=== PATIENT | male | born 1985 | race Caucasian/White ===

== ENCOUNTER 2022-05-07 08:48 | Emergency (ER) | payer BC, SELFPAY ==
[2022-05-07 09:02] VITALS: BP 156/95; PULSE 66; RESP 20; TEMP 36.4; O2SAT 99
--- NOTE | 2022-05-07 10:22 | ED.DENTAL ---
HPI - Dental/Oral General Chief complaint: Dental/Oral Stated complaint: infected tooth Time Seen by Provider: 05/07/22 10:23 Source: patient, RN notes reviewed and old records reviewed Mode of arrival: ambulatory Limitations: no limitations History of Present Illness HPI Narrative: 36-year-old male accompanied by significant other with 2 day history of dental pain with some left jaw swelling.Patient denies any difficulty with breathing or swallowing no Francisco angina noted no trismus. Patient reports that he has bad teeth and he needs to get into dentist for some extractions states he just got dental insurance. Patient has been taking Ibuprofen for his discomfort. MD Complaint: tooth pain Location: Tooth # (#19) Onset (ago): day(s) (2) Severity scale (1-10): 4 Treatment prior to arrival: oral analgesic Related Data Allergies Allergy/AdvReac Type Severity Reaction Status Date / Time amoxicillin Allergy Unknown Unknown Verified 05/07/22 09:34 Penicillins Allergy Unknown Unknown Verified 05/07/22 09:34 Review of Systems Review of Systems: CONSTITUTIONAL: Denies fever, chills, or sweats. ENT: Denies rhinorrhea, congestion, sore throat, or otalgia. Reports dental pain CARDIOVASCULAR: Denies chest pain, palpitations, or edema. RESPIRATORY: Denies cough or dyspnea. SKIN: Denies rash or itching. MUSCULOSKELETAL: Denies myalgia. NEUROLOGIC: Denies headache All systems reviewed & are unremarkable except as noted in HPI and below PMFSH Past Medical History Medical History (Updated 05/10/22 @ 16:35 by Maryjane South NP) History of dental problems Left wrist fracture Surgical History Surgical History (Updated 05/10/22 @ 16:32 by Maryjane South NP) History of placement of ear tubes Social History Social History (Updated 05/10/22 @ 16:33 by Maryjane South NP) Smoking packs per day: 1 Smoking cigarettes per day: 20.0 Years smoked: 20 Smoking pack-years: 20.00 Smoking status: Current every day smoker Alcohol intake: current Alcohol use details: social Substance use type: does not use Living arrangements: with family Gender identity (if verbalized by the patient): Male Comments At time of signature, agree with nursing past medical, surgical, social and family history. There is no relevant family history pertinent to the presenting complaint Exam Narrative: GENERAL: Well-appearing, well-nourished, and in no acute distress. HEAD: Normocephalic, atraumatic. EYES: PERRLA and EOMI. ENT: Nares clear, no rhinorrhea or epistaxis. Mucous membranes moist. Missing teeth, broken teeth, caries swelling gum and broken molar #19, no Francisco angina or trismus noted left jaw swelling noted NECK: Supple.no lymphadenopathy CHEST: Clear to auscultation. No respiratory distress.SAO2 99% HEART: Regular rate and rhythm. No murmur heard. Normal peripheral pulses. SKIN: Warm, dry, no rash. NEURO: No focal deficits. Alert and oriented x3. Course Course Emergency Course: Patient is aware of diagnosis, understands and agrees to treatment plan. Anticipatory guidance given. Patient agrees to follow-up as directed and is aware of reasons to seek care at the emergency department. Portions of this record may have been created with voice recognition software Level of Care: Express Care Visit Vital Signs Vital signs: Vital Signs Temperature 36.4 C L 05/07/22 09:02 Pulse Rate 66 05/07/22 09:02 Respiratory Rate 20 05/07/22 09:02 Blood Pressure 156/95 H 05/07/22 09:02 Pulse Oximetry 99 05/07/22 09:02 Oxygen Delivery Room Air 05/07/22 09:02 Temperature 36.4 C L 05/07/22 09:02 Pulse Rate 66 05/07/22 09:02 Respiratory Rate 20 05/07/22 09:02 Blood Pressure 156/95 H 05/07/22 09:02 Pulse Oximetry 99 05/07/22 09:02 Oxygen Delivery Room Air 05/07/22 09:02 Reviewed MDM - Dental/Oral MDM Narrative Medical decision making narrative: Patients pain and complaint coupled with physic
== END 2022-05-07 10:40 | disposition home or self-care (01) ==
PROVIDERS: Emergency Provider Registered Nurse
DX: K04.7 Periapical abscess without sinus (principal); K02.9 Dental caries, unspecified
CPT/HCPCS: 99213; G0463

== ENCOUNTER 2022-10-24 08:37 | Emergency (ER) | payer BC, SELFPAY ==
--- NOTE | 2022-10-24 08:41 | ED.SKABFB ---
HPI - Skin/Abscess/Foreign Bdy General Chief complaint: Skin/Abscess/Foreign Body Stated complaint: rash on let arm Source: patient and RN notes reviewed History of Present Illness HPI narrative: 37-year-old male presents to urgent care with complaints of an itchy rash to his left forearm. Patient states [place] this 1st started. Patient states he has been applying calamine lotion with no relief. Patient states the rash aggarwal. Denies any fevers, chills, chest pain or shortness of breath. Some parts of this dictation were generated by voice recognition software and may contain typographical and/or grammatical inaccuracies. Related Data Allergies Allergy/AdvReac Type Severity Reaction Status Date / Time amoxicillin Allergy Unknown Unknown Verified 10/24/22 09:19 Penicillins Allergy Unknown Unknown Verified 10/24/22 09:19 Review of Systems Review of Systems: Pertinent positives and pertinent negatives per HPI. [facility] Past Medical History Medical History (Updated 10/24/22 @ 09:34 by Jia Brush APRN) History of dental problems Left wrist fracture Surgical History Surgical History (Updated 05/10/22 @ 16:32 by Maryjane South NP) History of placement of ear tubes Social History Social History (Updated 05/10/22 @ 16:33 by Maryjane South NP) Smoking packs per day: 1 Smoking cigarettes per day: 20.0 Years smoked: 20 Smoking pack-years: 20.00 Smoking status: Current every day smoker Alcohol intake: current Alcohol use details: social Substance use type: does not use Living arrangements: with family Gender identity (if verbalized by the patient): Male Comments At the time of my signature, I reviewed and agree with the nursing past medical, surgical, social, and family history. There is no relevant family history pertinent to the patient complaint. Exam Narrative: GENERAL: This is a well-nourished, well-developed patient, in no apparent distress. HEAD: normocephalic, atraumatic. EYES: Sclera clear/white. Vision is grossly intact. EARS: External ears normal, auditory canals clear and without drainage. Hearing grossly intact. NOSE: External nose normal with no obvious nasal discharge, nares without redness, no rhinorrhea. THROAT: Mucous membranes moist, posterior pharynx clear. NECK: Neck supple, non-tender without lymphadenopathy, masses or thyromegaly. CARDIOVASCULAR: Regular rate RESPIRATORY: No respiratory distress SKIN: erythremic rash to left FA with linear, dry, patches with various papules noted. Couple to left FA. NEURO: awake, alert, and oriented to person, place and time. There were no obvious focal neurologic abnormalities. EXTREMITIES: No clubbing, cyanosis, or edema. No joint tenderness, effusion, or edema noted. Course Course Level of Care: Express Care Visit Vital Signs Vital signs: Vital Signs Temperature 98.8 F 10/24/22 08:48 Pulse Rate 73 10/24/22 08:48 Respiratory Rate 20 10/24/22 08:48 Blood Pressure 144/98 H 10/24/22 08:48 Pulse Oximetry 97 10/24/22 08:48 Oxygen Delivery Room Air 10/24/22 08:48 Temperature 98.8 F 10/24/22 08:48 Pulse Rate 73 10/24/22 08:48 Respiratory Rate 20 10/24/22 08:48 Blood Pressure 144/98 H 10/24/22 08:48 Pulse Oximetry 97 10/24/22 08:48 Oxygen Delivery Room Air 10/24/22 08:48 Reviewed MDM - Skin/Abscess/Foreign Bdy MDM Narrative Medical decision making narrative: Prevention is always better than treatment. Learn to identify poison joanne, oak, and sumac and avoid it. Wear long sleeves, long pants, shoes, and socks. If you touched the plant, try to keep your hands away from your eyes, mouth, and face. Wash the skin thoroughly with soap and cool water as soon as possible. Scrub under the fingernails with a brush to prevent spreading of the resin to other parts of the body by touching or scratching. Remember to wash any clothing with so
[2022-10-24 08:48] VITALS: BP 144/98; PULSE 73; RESP 20; TEMP 37.1; O2SAT 97
== END 2022-10-24 09:46 | disposition home or self-care (01) ==
PROVIDERS: Emergency Provider Nurse Practitioner Family
DX: L25.9 Unspecified contact dermatitis, unspecified cause (principal); F17.210 Nicotine dependence, cigarettes, uncomplicated
CPT/HCPCS: 99213; G0463

== ENCOUNTER 2024-05-28 09:03 | Emergency (ER) | payer BC, SELFPAY ==
[2024-05-28 09:05] VITALS: BP 145/97; PULSE 65; RESP 17; TEMP 36.9; O2SAT 97
--- NOTE | 2024-05-28 09:37 | ED_ITS ---
HPI - Dental/Oral General Chief complaint: Dental/Oral Stated complaint: Toothache Source: patient Mode of arrival: ambulatory History of Present Illness HPI Narrative: Patient presents for evaluation of a dental issue. He indicates he noticed swelling in the gumline yesterday and woke from sleep this morning with some right sided facial swelling. No fever, chills, nausea, vomiting. He is not diabetic. He had some drainage from the gumline he yesterday. He is not taking any medication for symptoms. Denies any associated pain. He smokes 1 pack per day. Related Data Allergies Allergy/AdvReac Type Severity Reaction Status Date / Time amoxicillin Allergy Unknown Unknown Verified 10/24/22 09:19 Penicillins Allergy Unknown Unknown Verified 10/24/22 09:19 Review of Systems Review of Systems: CONSTITUTIONAL: Denies fever, chills, or sweats. EYES: Denies visual changes, redness, or discharge. ENT: Reports swelling in the upper gumline, with drainage yesterday that has since resolved. Reports right sided facial swelling. CARDIOVASCULAR: Denies chest pain, palpitations, or edema. RESPIRATORY: Denies cough or dyspnea. GASTROINTESTINAL: Denies abdominal pain, nausea, vomiting, or diarrhea. GENITOURINARY: Denies dysuria or hematuria. SKIN: Denies rash or itching. MUSCULOSKELETAL: Denies back pain, joint pain, or myalgia. NEUROLOGIC: Denies headache, numbness, dizziness, or weakness. PSYCHIATRIC: Denies anxiety or depression. REPLACED BY [facility] Past Medical History Medical History History of dental problems Left wrist fracture Surgical History Surgical History History of placement of ear tubes Family History Family History Mother Family history non-contributory Social History Social History Smoking packs per day: 1 Smoking cigarettes per day: 20.0 Years smoked: 20 Smoking pack-years: 20.00 Smoking status: Current every day smoker Alcohol intake: current Alcohol use details: social Substance use type: does not use Living arrangements: with family Gender identity (if verbalized by the patient): Male Exam Narrative: GENERAL: Well-appearing, well-nourished, and in no acute distress. HEAD: Normocephalic, atraumatic. EYES: PERRLA and EOMI. ENT: Nares clear, no rhinorrhea or epistaxis. Mucous membranes moist. Oropharynx without tonsillar hypertrophy exudate or other lesions. Tooth #7 is fractured. There is no visible or palpable abscess. There is trace right-sided facial swelling. Bilateral TMs pearly hussein nonbulging NECK: Supple. No adenopathy or masses. No carotid bruits or JVD CHEST: Clear to auscultation. No respiratory distress. No wheezes rales or rhonchi HEART: Regular rate and rhythm. No murmur heard. Normal peripheral pulses. ABDOMEN: Soft, nontender, nondistended, normal active bowel sounds. EXTREMITIES: Normal range of motion. No edema. SKIN: Warm, dry, no rash. NEURO: No focal deficits. Alert and oriented x3. PSYCH: Normal mood and affect. Course Course Emergency Course: This is a 38-year-old male who presented for evaluation of right-sided facial swelling secondary to dental infection. Treat with clindamycin. Advised on smoking cessation. Follow-up with dentist. Go to the ER for worsening symptoms. Patient in agreement with plan of care Level of Care: Express Care Visit Vital Signs Vital signs: Vital Signs Temperature 36.9 C 05/28/24 09:05 Pulse Rate 65 05/28/24 09:05 Respiratory Rate 17 05/28/24 09:05 Blood Pressure 145/97 H 05/28/24 09:05 Pulse Oximetry 97 05/28/24 09:05 Oxygen Delivery Room Air 05/28/24 09:05 Temperature 36.9 C 05/28/24 09:05 Pulse Rate 65 05/28/24 09:05 Respiratory Rate 17 05/28/24 09:05 Blood Pressure 145/97 H 05/28/24 09:05 Pulse Oximetry 97 05/28/24 09:05 Oxygen Delivery Room Air 05/28/24 09:05 Discharge Plan Discharge Clinical Impression: Dental infection Patient Disposition: Home, Self-Care Condition: Stable Instructions: Antibiotic Form, Toothache (ED) Patient Language: Azeri Prescriptions: New clindamycin HCl 300 mg capsule 300 mg PO Q6H Qty: 40 0RF Follow-up/Referrals: Raman Trujillo MD [Physician] - Time of Disposition: 09:36
== END 2024-05-28 09:40 | disposition home or self-care (01) ==
PROVIDERS: Emergency Provider Nurse Practitioner
DX: K04.7 Periapical abscess without sinus (principal); F17.210 Nicotine dependence, cigarettes, uncomplicated
CPT/HCPCS: 99213; G0463